=== PATIENT | female | born 1965 ===

== ENCOUNTER 2017-06-05 08:21 | Outpatient (CLI) | payer OTHER ==
[~2017-06-05 08:21] MED LIST: EFFEXOR XR75 MG; HYDROCHLOROTH12.5 M1; LOSARTAN POTAS100 MG; MILLIPRED5 MG; SYNTHROID50 MCG; VENTOLIN HFA18 GM; VITAMIN D31000 UNI1; ZESTRIL20 MG
== END 2017-06-05 08:36 | disposition home or self-care (01) ==
LOC: NUCLEAR 08:21
DX: I27.29 Other secondary pulmonary hypertension (principal)

== ENCOUNTER 2018-07-15 23:01 | Emergency (ER) | payer OTHER ==
[~2018-07-15] VITALS: Ht 170.2 cm; Wt 86.2 kg
[2018-07-15] MEDS ORDERED: ELIQUIS5 MG PO (23:14)
[2018-07-15] MEDS ORDERED: COUMADIN10 MG PO (23:15)
== END 2018-07-16 11:10 | disposition home or self-care (01) ==
LOC: ER 23:01
DX: T46.4X1A Poisoning by angiotensin-converting-enzyme inhibitors, accidental (unintentional), initial encounter (principal); I95.2 Hypotension due to drugs

== ENCOUNTER 2021-05-16 18:51 | Emergency (ER) | payer OTHER ==
[~2021-05-16] VITALS: Ht 172.7 cm; Wt 99.8 kg
[~2021-05-16 18:51] MED LIST changes: +COUMADIN10 MG PO; +ELIQUIS5 MG PO
[2021-05-16] MEDS ORDERED: ULTRAM50 MG PO (22:21)
== END 2021-05-16 22:26 | disposition home or self-care (01) ==
LOC: ER 18:51
DX: S80.01XA Contusion of right knee, initial encounter (principal); Y92.016 Swimming-pool in single-family (private) house or garden as the place of occurrence of the external cause; I10 Essential (primary) hypertension; E03.9 Hypothyroidism, unspecified

== ENCOUNTER 2024-11-19 08:16 | Outpatient (CLI) | payer OTHER ==
[~2024-11-19 08:16] MED LIST changes: +ULTRAM50 MG PO
== END 2024-11-19 08:34 | disposition home or self-care (01) ==
LOC: MAMO-SONO 08:16
PROVIDERS: ATTEND Internal Medicine
DX: N64.4 Mastodynia (principal); Z12.31 Encounter for screening mammogram for malignant neoplasm of breast; R05.9 Cough, unspecified; I10 Essential (primary) hypertension